=== PATIENT | male | born 1995 | race Asian ===

== ENCOUNTER 2017-06-22 11:56 | Emergency (ER) | payer SELFPAY ==
[~2017-06-22] VITALS: Ht 170.2 cm; Wt 79.4 kg
[2017-06-22 12:16] VITALS: BP 144/80
[2017-06-22] MEDS ORDERED: VALACYCLOVIR500 MG ORAL (12:45)
[2017-06-22] MEDS ORDERED: PREDNISONE20 MG ORAL (12:45)
--- NOTE | 2017-06-22 12:45 | Emergency Room Report ---
History of Present Illness General Chief Complaint: General Complaint Source: Patient Present Illness HPI 21-year-old male patient presents to ER complaining of left sided facial immobility. patient reports symptoms began 4 days ago and absolutely since that time. Patient reports . Patient denies fever, chest pain, shortness of breath. Patient denies difficulty eating or swallowing. Patient denies vision loss. Patient denies history of cardiovascular disease, MA, Riddle's palsy. Patient denies nausea, vomiting, abdominal pain, diarrhea. Denies focal neuro deficits. Patient reports that he rode his motorcycle here to the ER without difficulty. Patient reports that he was unable to come earlier in the week because he had "tests at school". Allergies: Coded Allergies: No Known Allergies (Unverified , 06/22/17) Patient History Past Medical History: see triage record Reviewed Nursing Documentation: PMH: Agreed; PSxH: Agreed Nursing Documentation-PMH Past Medical History: No Stated History Review of Systems All Other Systems: negative except mentioned in HPI Physical Exam Vital Signs Date Time Temp Pulse Resp B/P (MAP) Pulse Ox O2 Delivery O2 Flow Rate FiO2 06/22/17 12:04 98.1 93 12 150/85 96 Room Air 98.1 Sp02 EP Interpretation: reviewed, normal General Appearance: well appearing, no apparent distress, alert, GCS 15, non- toxic Head: normocephalic, atraumatic Eyes: bilateral eye normal inspection, bilateral eye PERRL ENT: hearing grossly normal, normal pharynx, no angioedema, normal voice, TMs + canals normal, uvula midline, moist mucus membranes Neck: full range of motion Respiratory: lungs clear, normal breath sounds, no rhonchi, no respiratory distress, no accessory muscle use, no wheezing, speaking full sentences Cardiovascular #1: regular rate, rhythm, no edema Musculoskeletal: back normal, digits/nails normal, gait/station normal, normal range of motion, non-tender Neurologic: alert, oriented x3, responsive, grocery packer III-XII nml as tested, motor strength/tone normal, sensory intact, cerebellar normal, normal gait, speech normal, facial droop - left side of face, unable to wrinkle forehead, no tongue deviation Psychiatric: mood/affect normal Skin: no rash Lymphatic: no adenopathy Medical Decision Making PA Attestation Dr. Vu is my supervising Physician whom patient management has been discussed with. Diagnostic Impression: Primary Impression: Riddle's palsy ER Course Pt. presents to the ED c/o left sided facial droop. Ddx considered but are not limited to Riddle's palsy, stroke, herpes zoster, otitis media. Vital signs: are WNL, pt. is afebrile ER COURSE: Physical exam shows left-sided facial droop, unable to wrinkle forehead. No tongue deviation. No vesicles on ear. No TM erythema, no loss of light reflex, low suspicion for otitis media. No vesicles on the external meatus ear low suspicion for herpes zoster. No chest pain, no shortness of breath, no history of stroke, no slurred speech, no arm or leg weakness, cranial nerves intact as tested. Low suspicion for stroke, cardiovascular disease. Young healthy patient with no hx of dz. Will treat patient for Riddle's palsy. Instructed patient to follow up with primary care provider and discuss referral to neurology as needed. Informed patient likely viral cause of symptoms. Denies hx of herpes, will provide Valacyclovir to cover for possible infection. Return to ER for new or worsening of symptoms. Will provide with medication.. DISCHARGE: -Rx provided for Valacyclovir 1000mg, TID x 7 days -Rx provided for Prednisone 600mg, daily x7 days At this time pt is stable for d/c to home. Patient is resting comfortably, in no acute distress, nontoxic appearing, talking without difficulty. Patient to take medications as instructed Will provide with patient care instructions and any necessary prescriptions. Care plan and follow-up instructions provided. Patient instructed to follow-up with primary care provider in 3 - 5 days. Patient questions asked and answered. Patient reports understanding and agreement to treatment plan. ER precautions given. Patient instructed to return to ER immediately for any new or worsening of symptoms including but not limited to increasing SOB, persistent fever, chest pain, intractable vomiting. - Please note that this Emergency Department Report was dictated using [employer] teaching technology software, occasionally this can lead to erroneous entry secondary to interpretation by the dictation equipment. Last Vital Signs Date Time Temp Pulse Resp B/P (MAP) Pulse Ox O2 Delivery O2 Flow Rate FiO2 06/22/17 12:16 98.1 66 12 144/80 96 Room Air 98.1 Disposition: HOME, SELF-CARE Condition: Stable Scripts Valacyclovir Hcl* (VALTREX*) 500 Mg Tablet 1000 MG ORAL THREE TIMES A DAY for 7 Days, #21 TAB Prov: Saud Salcedo 06/22/17 Prednisone* (PREDNISONE*) 20 Mg Tablet 60 MG ORAL DAILY for 7 Days, #21 TAB Prov: Saud Salcedo 06/22/17 Patient Instructions: Riddle Palsy Additional Instructions: Followup with primary care provider in 3 -5 days. Contact insurance to get name of physician to follow-up with. Discuss referral to neurologist. Take medications as directed. Patient questions asked and answered. ER precautions given, patient instructed to return to ER immediately for any new or worsening of symptoms. Saud Salcedo Jun 22, 2017 12:45
[2017-06-22 13:20] VITALS: BP 131/82
== END 2017-06-22 13:26 | disposition home or self-care (01) ==
LOC: EMR 12:45
DX: G51.0 Bell's palsy (principal)
CPT/HCPCS: 99284